=== PATIENT | female | born 1990 | race Caucasian/White ===

== ENCOUNTER 2018-08-01 16:43 | Emergency (ER) | payer MEDICAID ==
[2018-08-01 18:21] LABS: ABNORMAL IP MESSAGE 1; HEMATOCRIT 36.8 % (37.0-47.0); MEAN CORPUSCULAR HEMOGLOBIN 28.4 pg (29.0-33.0); MEAN CORPUSCULAR HGB CONC 32.6 g/dl (32.0-37.0); MEAN CORPUSCULAR VOLUME 87.2 fl (82.0-101.0); MEAN PLATELET VOLUME 13.2 fl (7.4-10.4); PLATELET COUNT 167 10^3/UL (140-415); RED BLOOD COUNT 4.22 10^6/ul (4.20-5.40); RED CELL DISTRIBUTION WIDTH 12.5 % (11.5-14.5)
[2018-08-01 18:22] LABS: ADD MAN DIFF? YES; POSITIVE DIFF @See below
[2018-08-01 18:29] LABS: ADD UMIC YES; UR ASCORBIC ACID 40 mg/dL (NEGATIVE); UR BILIRUBIN (Dip) NEGATIVE (NEGATIVE); UR BLOOD (Dip) 1+ mg/dL (NEGATIVE); UR CLARITY SLIGHTLY CLOUDY (CLEAR); UR COLOR YELLOW (YELLOW); UR GLUCOSE (Dip) NEGATIVE (NEGATIVE); UR KETONES (Dip) 1+ mg/dL (NEGATIVE); UR LEUKOCYTE ESTERASE (Dip) NEGATIVE Leu/ul (NEGATIVE); UR MUCUS MODERATE /HPF (NONE SEEN); UR NITRITE (Dip) NEGATIVE (NEGATIVE); UR RBC 92 /HPF (0-5); UR SPECIFIC GRAVITY (Dip) 1.025 (1.003-1.030); UR TOTAL PROTEIN (Dip) NEGATIVE (NEGATIVE); UR UROBILINOGEN (Dip) 1+ mg/dL (NEGATIVE); UR WBC 3 /HPF (0-5)
[2018-08-01 19:36] LABS: ANISOCYTOSIS 1+ (0-0); BAND NEUTROPHILS #M 0.2 10^3/ul (0.0-0.6); BAND NEUTROPHILS % (M) 3 % (0-4); GIANT THROMBO% (M) 3 % (0-0); LYMPHOCYTES #M 1.1 10^3/ul (0.8-2.9); LYMPHOCYTES % (M) 16 % (15-51); MONOCYTE #M 0.6 10^3/ul (0.3-0.9); MONOCYTES % (M) 9 % (0-11); PLATELET ESTIMATE NORMAL; POIKILOCYTOSIS 1+ (0-0); SEG NEUT #M 5.1 10^3/ul (1.6-7.5); SEGMENTED NEUTROPHILS (M) % 72 % (39-77); SMUDGE%M 5 % (0-0)
== END 2018-08-01 19:44 | disposition home or self-care (01) ==
LOC: FTE 16:43
DX: O26.891 Other specified pregnancy related conditions, first trimester (principal); R10.30 Lower abdominal pain, unspecified; O99.89 Other specified diseases and conditions complicating pregnancy, childbirth and the puerperium; R30.0 Dysuria; R10.2 Pelvic and perineal pain; Z3A.09 9 weeks gestation of pregnancy
CPT/HCPCS: 76775; 76801; 81001; 84702; 85025; 86900; 86901; 99284-25

== ENCOUNTER 2018-12-14 20:24 | Outpatient (CLI) | payer OTHER ==
[2018-12-14 21:42] LABS: ADD UMIC NO; UR ASCORBIC ACID NEGATIVE (NEGATIVE); UR BILIRUBIN (Dip) NEGATIVE (NEGATIVE); UR BLOOD (Dip) NEGATIVE (NEGATIVE); UR CLARITY CLEAR (CLEAR); UR COLOR YELLOW (YELLOW); UR GLUCOSE (Dip) NEGATIVE (NEGATIVE); UR KETONES (Dip) NEGATIVE (NEGATIVE); UR LEUKOCYTE ESTERASE (Dip) NEGATIVE Leu/ul (NEGATIVE); UR NITRITE (Dip) NEGATIVE (NEGATIVE); UR SPECIFIC GRAVITY (Dip) 1.012 (1.003-1.030); UR TOTAL PROTEIN (Dip) NEGATIVE (NEGATIVE); UR UROBILINOGEN (Dip) NEGATIVE (NEGATIVE)
== END 2018-12-14 22:06 | disposition home or self-care (01) ==
LOC: OBT 20:24 → L-D 20:24 → OBT 22:06
DX: O26.893 Other specified pregnancy related conditions, third trimester (principal); R10.9 Unspecified abdominal pain; Z3A.28 28 weeks gestation of pregnancy
CPT/HCPCS: 76817; 76818; 81003

== ENCOUNTER 2019-01-06 14:07 | Outpatient (CLI) | payer OTHER ==
[2019-01-06 15:26] LABS: ADD MAN DIFF? NO
[2019-01-06 15:31] LABS: ABNORMAL IP MESSAGE 1; BASOPHILS % 0.2 % (0.0-2.0); EOSINOPHILS % 0.5 % (0.0-7.0); HEMATOCRIT 30.3 % (37.0-47.0); HEMOGLOBIN 9.3 g/dl (12.0-16.0); LYMPHOCYTES # 1.3 10^3/ul (0.8-2.9); LYMPHOCYTES % 19.6 % (15.0-51.0); MEAN CORPUSCULAR HEMOGLOBIN 26.4 pg (29.0-33.0); MEAN CORPUSCULAR HGB CONC 30.7 g/dl (32.0-37.0); MEAN CORPUSCULAR VOLUME 86.1 fl (82.0-101.0); MEAN PLATELET VOLUME 13.5 fl (7.4-10.4); MONOCYTE # 0.4 10^3/ul (0.3-0.9); MONOCYTES % 5.9 % (0.0-11.0); NEUTROPHIL # 4.7 10^3/ul (1.6-7.5); NEUTROPHILS % 73.2 % (39.0-77.0); PLATELET COUNT 144 10^3/UL (140-415); RED BLOOD COUNT 3.52 10^6/ul (4.20-5.40); RED CELL DISTRIBUTION WIDTH 13.2 % (11.5-14.5)
[2019-01-06 15:31] LABS: WHITE BLOOD COUNT 6.4 10^3/ul (4.8-10.8)
[2019-01-06 15:35] LABS: POSITIVE DIFF @See below
[2019-01-06 15:53] LABS: ADD UMIC YES; UR ASCORBIC ACID NEGATIVE (NEGATIVE); UR BILIRUBIN (Dip) NEGATIVE (NEGATIVE); UR BLOOD (Dip) NEGATIVE (NEGATIVE); UR CLARITY SLIGHTLY CLOUDY (CLEAR); UR COLOR YELLOW (YELLOW); UR GLUCOSE (Dip) NEGATIVE (NEGATIVE); UR KETONES (Dip) NEGATIVE (NEGATIVE); UR LEUKOCYTE ESTERASE (Dip) TRACE Leu/ul (NEGATIVE); UR MUCUS FEW /HPF (NONE SEEN); UR NITRITE (Dip) NEGATIVE (NEGATIVE); UR RBC 1 /HPF (0-5); UR SPECIFIC GRAVITY (Dip) 1.017 (1.003-1.030); UR SQUAMOUS EPITHELIAL CELL FEW /HPF (FEW); UR TOTAL PROTEIN (Dip) NEGATIVE (NEGATIVE); UR UROBILINOGEN (Dip) NEGATIVE (NEGATIVE); UR WBC 2 /HPF (0-5)
[2019-01-06 16:15] LABS: BASOPHILS % (M) 1 % (0-2); BURR CELLS 1+ (0-0); EOSINOPHILS % (M) 2 % (0-7); GIANT THROMBO% (M) 2 % (0-0); LYMPHOCYTES #M 0.8 10^3/ul (0.8-2.9); LYMPHOCYTES % (M) 13 % (15-51); MONOCYTE #M 0.1 10^3/ul (0.3-0.9); MONOCYTES % (M) 2 % (0-11); MYELOCYTES % (M) 1 % (0-0); OVALOCYTES 1+ (0-0); PLATELET ESTIMATE NORMAL; POIKILOCYTOSIS 1+ (0-0); SEGMENTED NEUTROPHILS (M) % 81 % (39-77); SMUDGE%M 3 % (0-0)
[2019-01-06 17:14] LABS: ALANINE AMINOTRANSFERASE 15 IU/L (13-69); ALBUMIN 3.3 g/dl (3.3-4.9); ALBUMIN/GLOBULIN RATIO 0.89; ALKALINE PHOSPHATASE 126 IU/L (42-121); ANION GAP 7 (5-13); ASPARTATE AMINO TRANSFERASE 22 IU/L (15-46); BILIRUBIN,INDIRECT 0.4 mg/dl (0-1.1); BILIRUBIN,TOTAL 0.4 mg/dl (0.2-1.3); BLOOD UREA NITROGEN 5 mg/dl (7-20); CALCIUM 8.6 mg/dl (8.4-10.2); CARBON DIOXIDE 23 mmol/L (21-31); CHLORIDE 109 mmol/L (97-110); CREATININE 0.56 mg/dl (0.44-1.00); Estimated GFR > 60 mL/min (>60); GLUCOSE 121 mg/dl (70-220); POTASSIUM 3.6 mmol/L (3.5-5.1); SODIUM 139 mmol/L (135-144)
== END 2019-01-06 18:50 | disposition home or self-care (01) ==
LOC: OBT 14:07 → L-D 14:08 → OBT 18:50
DX: O9A.213 Injury, poisoning and certain other consequences of external causes complicating pregnancy, third trimester (principal); R10.9 Unspecified abdominal pain; W18.30XA Fall on same level, unspecified, initial encounter; Y92.89 Other specified places as the place of occurrence of the external cause; Z3A.31 31 weeks gestation of pregnancy
CPT/HCPCS: 76817; 76818; 80053; 81001; 85025; 85460; 86900; 86901; 87086

== ENCOUNTER 2019-02-26 12:59 | Inpatient (IN) | payer OTHER ==
[2019-02-26] MEDS ORDERED: CARBOPROST 250 MCG INJ IM ×2 (13:30→21:00)
[2019-02-26] MEDS ORDERED: MISOPROSTOL 200 MCG TAB PR ×2 (13:30→21:00)
[2019-02-26] MEDS ORDERED: METHYLERGONOVINE 0.2 MG INJ IM ×2 (13:30→21:00)
[2019-02-26] MEDS ORDERED: OXYTOCIN 30 UNITS/LR 500 ML IV ×2 (13:30→21:00)
[2019-02-26] MEDS: LACTATED RINGER'S 1,000 ML IV ×2 (13:46→16:12)
[2019-02-26 14:12] LABS: ADD MAN DIFF? NO
[2019-02-26 14:16] LABS: WHITE BLOOD COUNT 7.7 10^3/ul (4.8-10.8)
[2019-02-26 14:16] LABS: BASOPHILS % 0.1 % (0.0-2.0); EOSINOPHILS % 0.3 % (0.0-7.0); HEMOGLOBIN 10.3 g/dl (12.0-16.0); LYMPHOCYTES # 1.6 10^3/ul (0.8-2.9); LYMPHOCYTES % 20.8 % (15.0-51.0); MEAN CORPUSCULAR HGB CONC 30.3 g/dl (32.0-37.0); MEAN CORPUSCULAR VOLUME 82.5 fl (82.0-101.0); MEAN PLATELET VOLUME 14.2 fl (7.4-10.4); MONOCYTE # 0.4 10^3/ul (0.3-0.9); MONOCYTES % 5.7 % (0.0-11.0); NEUTROPHIL # 5.6 10^3/ul (1.6-7.5); NEUTROPHILS % 72.6 % (39.0-77.0); PLATELET COUNT 151 10^3/UL (140-415); RED BLOOD COUNT 4.12 10^6/ul (4.20-5.40); RED CELL DISTRIBUTION WIDTH 14.7 % (11.5-14.5)
[2019-02-26 14:35] LABS: INR 0.87; PROTIME 11.9 Sec (11.9-14.9); PT RATIO 0.9
[2019-02-26 14:36] LABS: PARTIAL THROMBOPLASTIN TIME 26.2 Sec (23.0-35.0)
[2019-02-26 15:02] LABS: HEPATITIS B SURFACE ANTIGEN NEGATIVE (NEGATIVE)
[2019-02-26] MEDS ORDERED: FENTAnyl 50 MCG/ML VIAL (15:37)
[2019-02-26] MEDS ORDERED: PHENYLephrine (100 MCG/ML) 10ML SYG ×2 (15:37→16:35)
[2019-02-26] MEDS ORDERED: morphine SULFATE/PF (10 MG/10 ML) INJ (15:37)
[2019-02-26] MEDS ORDERED: HYDROmorphONE 0.5 MG/0.5 ML SYG IV ×2 (16:00)
[2019-02-26] MEDS ORDERED: ZOLPIDEM 5 MG TAB PO (16:00)
[2019-02-26] MEDS ORDERED: DIPHENHYDRAMINE 50 MG INJ IV (16:00)
[2019-02-26] MEDS ORDERED: NALOXONE (0.4 MG/ML) INJ IV (16:00)
[2019-02-26] MEDS: AZITHROMYCIN 500MG/NS (PMX) 250 ML IV (16:12)
[2019-02-26] MEDS: CEFAZOLIN 2 GM/50 ML (PMX) 50 ML IVPB (16:12)
[2019-02-26] MEDS ORDERED: DEXAMETHASONE 4 MG/ML 1 ML INJ (16:25)
[2019-02-26] MEDS ORDERED: ONDANSETRON 4 MG INJ (16:25)
[2019-02-26] MEDS: ACETAMINOPHEN 500 MG TAB PO (17:33)
[2019-02-26] MEDS: OXYTOCIN 30 UNITS/LR 500 ML IV (17:55)
[2019-02-26 19:40] LABS: RAPID PLASMA REAGIN NONREACTIVE (NR)
[2019-02-26] MEDS: KETOROLAC 30 MG INJ IV (19:51)
[2019-02-26] MEDS: ONDANSETRON 4 MG INJ IV (20:08)
[2019-02-26] MEDS: SENNA/DOCUSATE NA (8.6MG/50MG) TAB PO (21:00)
[2019-02-26] MEDS ORDERED: NA PHOSPHATE/BIPHOS 133 ML ENEMA PR (21:00)
[2019-02-26] MEDS ORDERED: OXYCODONE/ACETAMINOPHEN (5/325) TAB PO (21:00)
[2019-02-26] MEDS: IBUPROFEN 800 MG TAB PO (22:00)
[2019-02-27] MEDS: CLINDAMYCIN 300 MG CAP PO ×4 (00:27→17:30)
[2019-02-27] MEDS: LACTATED RINGER'S 1,000 ML IV ×2 (00:29→10:10)
[2019-02-27] MEDS: CEFAZOLIN 2 GM/50 ML (PMX) 50 ML IVPB ×3 (00:54→15:37)
[2019-02-27] MEDS: IBUPROFEN 800 MG TAB PO ×3 (06:00→22:30)
[2019-02-27 08:28] LABS: ADD MAN DIFF? NO
[2019-02-27] MEDS: SENNA/DOCUSATE NA (8.6MG/50MG) TAB PO ×2 (08:42→21:10)
[2019-02-27 08:47] LABS: BASOPHILS % 0.1 % (0.0-2.0); HEMATOCRIT 30.3 % (37.0-47.0); HEMOGLOBIN 9.2 g/dl (12.0-16.0); LYMPHOCYTES # 1.5 10^3/ul (0.8-2.9); LYMPHOCYTES % 13.7 % (15.0-51.0); MEAN CORPUSCULAR HGB CONC 30.4 g/dl (32.0-37.0); MEAN CORPUSCULAR VOLUME 82.3 fl (82.0-101.0); MONOCYTE # 0.7 10^3/ul (0.3-0.9); MONOCYTES % 6.2 % (0.0-11.0); NEUTROPHIL # 8.5 10^3/ul (1.6-7.5); NEUTROPHILS % 79.5 % (39.0-77.0); PLATELET COUNT 121 10^3/UL (140-415); RED BLOOD COUNT 3.68 10^6/ul (4.20-5.40); RED CELL DISTRIBUTION WIDTH 14.7 % (11.5-14.5)
[2019-02-27 08:47] LABS: WHITE BLOOD COUNT 10.7 10^3/ul (4.8-10.8)
[2019-02-27] MEDS: BISACODYL 10 MG SUPP PR (10:03)
[2019-02-27] MEDS: KETOROLAC 30 MG INJ IV (15:51)
[2019-02-27] MEDS: HYDROCODONE/APAP (5/325) TAB PO (21:10)
[2019-02-28] MEDS: CLINDAMYCIN 300 MG CAP PO ×4 (00:19→17:11)
[2019-02-28] MEDS: LANOLIN HPA 1 PKT TOP (00:21)
[2019-02-28] MEDS: IBUPROFEN 800 MG TAB PO ×3 (05:41→22:29)
[2019-02-28] MEDS: SENNA/DOCUSATE NA (8.6MG/50MG) TAB PO ×2 (08:47→20:36)
[2019-02-28] MEDS ORDERED: ACETAMINOPHEN 325 MG TAB PO (17:30)
[2019-02-28] MEDS: HYDROCODONE/APAP (5/325) TAB PO (19:28)
[2019-03-01] MEDS: CLINDAMYCIN 300 MG CAP PO ×3 (02:13→12:11)
[2019-03-01] MEDS: IBUPROFEN 800 MG TAB PO (06:08)
[2019-03-01] MEDS ORDERED: DIPHTH/TET/ACEL PERTUSS (ADULT) 0.5 ML VIAL IM* (09:00)
[2019-03-01] MEDS ORDERED: MEASLES,MUMPS,RUBELLA VACCINE INJ SC* (09:00)
[2019-03-01] MEDS: SENNA/DOCUSATE NA (8.6MG/50MG) TAB PO (09:48)
== END 2019-03-01 13:46 | disposition home or self-care (01) | DRG 785 ==
LOC: L-D 12:59 → PP1 20:53
PROVIDERS: Obstetrics & Gynecology
PROC: 10D00Z1 Extraction of Products of Conception, Low, Open Approach (ICD-10-PCS; principal; 2019-02-26 15:30)
PROC: 0UB70ZZ Excision of Bilateral Fallopian Tubes, Open Approach (ICD-10-PCS; 2019-02-26 15:30)
DX: O34.211 Maternal care for low transverse scar from previous cesarean delivery (principal); Z37.0 Single live birth; Z3A.39 39 weeks gestation of pregnancy
CPT/HCPCS: 85025; 85610; 85730; 86592; 86850; 86900; 86901; 87340; 88302; 99464